=== PATIENT | male | born 1995 | race African-American/Black ===

== ENCOUNTER 2024-04-20 10:15 | Emergency (ER) | payer MEDICAID ==
[~2024-04-20] VITALS: Ht 170.2 cm; Wt 72.6 kg
[2024-04-20 10:24] VITALS: BP 142/92; TEMP 98
[2024-04-20] MEDS ORDERED: OLAN5TAB3 PO (12:37)
[2024-04-20 15:09] VITALS: O2SAT 97
== END 2024-04-20 15:09 | disposition home or self-care (01) ==
LOC: ER 10:26
DX: R51.9 Headache, unspecified (principal); F20.9 Schizophrenia, unspecified; M79.10 Myalgia, unspecified site; Z76.0 Encounter for issue of repeat prescription; Z76.5 Malingerer [conscious simulation]; Z79.899 Other long term (current) drug therapy
CPT/HCPCS: 71045-TC; 73130-TC